=== PATIENT | male | born 1955 | race Caucasian/White ===

== ENCOUNTER → 2018-03-29 10:55 | Outpatient (CLI) | payer BC, SELFPAY ==
--- NOTE | 2018-03-29 | DI.MRI.S_ITS ---
PROCEDURE: MR SHOULDER LT WO CON INDICATIONS: Pain in Left shoulder TECHNIQUE: Noncontrast oblique coronal T2 fast spin echo with fat saturation, oblique sagittal T1 spin echo and T2 fast spin echo with fat saturation, axial T1 spin echo and T2 fast spin echo with fat saturation through the shoulder. COMPARISON: [facility] Outside Film, CR, XR SHOULDER 2+ VIEWS LEFT, 01/17/2018, 11:42. FINDINGS: Image quality: Excellent. Rotator cuff: There is moderate to severe articular sided partial-thickness tearing of the superior cuff involving the conjoined supraspinatus and infraspinatus fibers distally at their insertions with interstitial extension anteriorly and proximally in the supraspinatus. A small full-thickness component approximately 1.7 cm from the insertion is not excluded. The subscapularis demonstrates mild tendinopathy distally with minimal interstitial partial tearing. The teres minor appears intact. Sagittal images demonstrate no fatty muscle atrophy. Bones and bursae: No bone marrow contusions or fractures. There is moderate acromioclavicular joint degeneration with capsular hypertrophy and a joint effusion. The acromion demonstrates slight lateral downsloping, without an os acromiale. A small amount of subacromial-subdeltoid bursal fluid is present. [id number] osteoarthritic changes of the glenohumeral joint are demonstrated with mild osteophytosis and cartilage thinning. There is a small glenohumeral joint effusion. Capsule and soft tissues: There is mild blunting and tearing of the posterosuperior and posterior labrum. There is also mild tearing of the anteroinferior labrum. In the absence of intra-articular contrast, the glenohumeral ligaments appear intact. The long head of the biceps tendon demonstrates normal location and appears intact. IMPRESSION: 1. Moderate to severe articular sided partial thickness tearing of the superior cuff as described with a possible small full-thickness component not excluded. No tendon retraction or fatty muscle atrophy. 2. Moderately acromioclavicular joint degeneration with a small amount of subacromial/subdeltoid bursal fluid. 3. [id number] osteoarthritic changes of the glenohumeral joint. 4. Tearing of the posterosuperior and posterior labrum as well as the anteroinferior labrum. Dictated by: Bryon Padilla M.D. on 03/31/2018 at 10:33 Approved by: Bryon Padilla M.D. on 03/31/2018 at 10:56
== END ==
PROVIDERS: Visit Provider Orthopaedic Surgery
DX: M75.112 Incomplete rotator cuff tear or rupture of left shoulder, not specified as traumatic (principal); M25.512 Pain in left shoulder; M19.012 Primary osteoarthritis, left shoulder; S43.492A Other sprain of left shoulder joint, initial encounter
CPT/HCPCS: 73221